=== PATIENT | female | born 2000 | race Two or more races ===

== ENCOUNTER 2023-12-15 18:58 | Inpatient (IN) | payer OTHER ==
[~2023-12-15] VITALS: Ht 160 cm; Wt 67.1 kg
[2023-12-15] MEDS ORDERED: FAMOTIDINE/PF 20 MG/2 ML VIAL IV PRN (19:15)
[2023-12-15] MEDS ORDERED: RINGERS SOLUTION,LACTATED 1,000 ML IV SCH (19:15)
[2023-12-15] MEDS ORDERED: MORPHINE SULFATE 4 MG/ML CARTRIDGE IV PRN (19:15)
[2023-12-15 20:02] LABS: HEMATOCRIT 37.4 % (36.0-45.00); HEMOGLOBIN 12.9 g/dL (12.0-15.00); MEAN CELL VOLUME 94.3 fL (80.00-100.00); MEAN CORPUSCULAR HEMOGLOBIN 32.6 pg (27.00-32.0); MEAN CORPUSCULAR HGB CONC 34.6 g/dl (32.0-36.0); PLATELET COUNT 213 K/uL (150-450); RED BLOOD COUNT 3.97 M/uL (4.00-6.00); RED CELL DISTRIBUTION WIDTH 12.9 % (11.5-14.5)
[2023-12-15 20:04] LABS: PH,URINE 5.5 (5.0-8.0); URINE APPEARANCE Clear; URINE BILIRRUBIN Negative (NEGATIVE); URINE BLOOD Negative; URINE COLOR Yellow; URINE GLUCOSE Negative (NEGATIVE); URINE LEUKOCYTE Negative; URINE NITRATE Negative; URINE PROTEIN Negative (NEGATIVE); URINE UROBILINOGEN 0.2 E.U./dl
[2023-12-15 20:07] LABS: URINE BACTERIA 1485.2 uL (0.0-1933); URINE EPITHELIAL CELLS 41.5 uL (0.0-38.8); URINE WBC 4.6 uL (0.0-23.2)
[2023-12-15 20:08] LABS: URINE RBC 1.5 uL (0.0-20.8)
[2023-12-15 20:25] LABS: INR 0.97; PARTIAL THROMBOPLASTIN TIME 31.2 SECONDS (22.0-34.0); PROTHROMBIN TIME 10.2 SECONDS (9.0-11.5)
[2023-12-15 20:28] LABS: BILIRUBIN TOTAL 1.28 mg/dL (0.3-1.2); CALCIUM 8.7 mg/dL (8.5-10.1); CREATININE SERUM 0.64 mg/dL (0.55-1.02); GFR 114.99; GLOBULINA 3.2 G/DL (2.4-3.5); POTASSIUM 3.44 mEq/L (3.5-5.1); TOTAL PROTEIN 6.2 gm/dL (6.4-8.2)
[2023-12-15] MEDS ORDERED: PEPCID40 MG PO (20:48)
[2023-12-15] MEDS ORDERED: PRENATAL TABLE1 EAC1 PO (20:48)
[2023-12-16] MEDS ORDERED: OXYTOCIN 500 ML IV ONE (07:30)
[2023-12-16] MEDS ORDERED: CHLORHEXIDINE GLUCONATE 120 ML BOTTLE TOP ONE (11:18)
[2023-12-16] MEDS ORDERED: DOCUSATE SODIUM 100MG CAP PO SCH (18:03)
[2023-12-16] MEDS ORDERED: ERYTHROMYCIN BASE 1 GM TUBE OP SCH (18:15)
[2023-12-16] MEDS ORDERED: LIDOCAINE HCL 1% 200MG/20ML VIAL IJ SCH (18:15)
[2023-12-16] MEDS ORDERED: CHLORHEXIDINE GLUCONATE 120 ML BOTTLE TP SCH (18:15)
[2023-12-16] MEDS ORDERED: IBUprofen 400 MG TABLET PO PRN (18:15)
[2023-12-17 05:12] LABS: HEMATOCRIT 36.9 % (36.0-45.00); HEMOGLOBIN 12.8 g/dL (12.0-15.00); MEAN CELL VOLUME 95.4 fL (80.00-100.00); MEAN CORPUSCULAR HEMOGLOBIN 33.1 pg (27.00-32.0); MEAN CORPUSCULAR HGB CONC 34.7 g/dl (32.0-36.0); PLATELET COUNT 180 K/uL (150-450); RED BLOOD COUNT 3.87 M/uL (4.00-6.00); RED CELL DISTRIBUTION WIDTH 12.9 % (11.5-14.5)
[2023-12-17] MEDS ORDERED: PNV,CALCIUM 72/IRON/FOLIC ACID 1 TAB TABLET PO SCH (09:00)
== END 2023-12-18 13:31 | disposition home or self-care (01) | DRG 807 ==
LOC: LDR 18:58 → OB/GYN 12-16 16:30
PROVIDERS: ADMIT Obstetrics & Gynecology Gynecology; ATTEND Obstetrics & Gynecology Gynecology
PROC: 4A1HXCZ Monitoring of Products of Conception, Cardiac Rate, External Approach (ICD-10-PCS; 2023-12-15)
PROC: 10E0XZZ Delivery of Products of Conception, External Approach (ICD-10-PCS; principal; 2023-12-16)
PROC: 0UQG7ZZ Repair Vagina, Via Natural or Artificial Opening (ICD-10-PCS; 2023-12-16)
DX: O71.4 Obstetric high vaginal laceration alone (principal); Z37.0 Single live birth; Z3A.40 40 weeks gestation of pregnancy; Z20.822 Contact with and (suspected) exposure to COVID-19

== ENCOUNTER 2025-09-06 14:45 | Inpatient (IN) | payer OTHER ==
[~2025-09-06] VITALS: Ht 162.6 cm; Wt 67.6 kg
[~2025-09-06 14:45] MED LIST: PEPCID40 MG PO; PRENATAL TABLE1 EAC1 PO
[2025-09-13] VITALS (7 sets, daily range): BP systolic 93–123; BP diastolic 53–76
[2025-09-13] MEDS ORDERED: MORPHINE SULFATE 4 MG/ML VIAL IV PRN (04:15)
[2025-09-13] MEDS ORDERED: RINGERS SOLUTION,LACTATED 1,000 ML IV SCH (04:15)
[2025-09-13] MEDS ORDERED: CHLORHEXIDINE GLUCONATE 120 ML BOTTLE TOP ONE (04:35)
[2025-09-13] MEDS ORDERED: ERYTHROMYCIN BASE OPHT 1GM EACH TUBE OP ONE (04:35)
[2025-09-13] MEDS ORDERED: LIDOCAINE HCL 1% 10ML VIAL ONE (04:35)
[2025-09-13] MEDS ORDERED: OXYTOCIN 20 UNITS/1000ML RL PIGGYBAG IV ONE (04:35)
[2025-09-13 04:41] LABS: BASO % 0.4 % (0.1-1.2); EOS # 0.22 (0.04-0.54); EOS % 2.9 % (0.7-7.0); LYMPH # 2.02 (1.18-3.74); LYMPH % 26.3 % (19.3-53.1); MEAN PLATELET VOLUME 9.80 fl (9.4-12.4); MONO # 0.66 (0.24-0.82); MONO % 8.6 % (4.7-12.5); NEUT # 4.71 (1.56-6.13); NEUT % 61.1 % (34.0-71.1); RED CELL DISTRIBUTION WIDTH 13.3 % (11.6-14.4)
[2025-09-13 05:03] LABS: INR < 0.93
[2025-09-13 05:07] LABS: ALT/SGPT 24.0 U/L (12-78); AST/SGOT 35.0 U/L (15-37); BILIRUBIN TOTAL 0.92 mg/dL (0.3-1.2); BUN CREA RATIO 16.0 (7.0-25.0); CREATININE SERUM 0.44 mg/dL (0.55-1.02); GFR 174.23; GLOBULINA 3.4 G/DL (2.4-3.5); GLUCOSE FASTING 83.0 mg/dL (65-100); OSMOLALITY SERUM 277.0 MOSM/KG (275-295)
[2025-09-13] MEDS ORDERED: CHLORHEXIDINE GLUCONATE 120 ML BOTTLE TP SCH (05:45)
[2025-09-13] MEDS ORDERED: OXYTOCIN 1,000 ML IV SCH (05:45)
[2025-09-14 00:50] VITALS: BP 115/71
[2025-09-14 06:48] LABS: BASO % 0.3 % (0.1-1.2); EOS # 0.26 (0.04-0.54); EOS % 2.9 % (0.7-7.0); LYMPH # 2.36 (1.18-3.74); LYMPH % 26.5 % (19.3-53.1); MEAN PLATELET VOLUME 10.00 fl (9.4-12.4); MONO # 0.66 (0.24-0.82); MONO % 7.4 % (4.7-12.5); NEUT # 5.55 (1.56-6.13); NEUT % 62.2 % (34.0-71.1); RED CELL DISTRIBUTION WIDTH 13.5 % (11.6-14.4)
[2025-09-14 08:58] VITALS: BP 102/65
[2025-09-14 17:27] VITALS: BP 105/70
[2025-09-15 00:59] VITALS: BP 103/63
[2025-09-15 08:00] VITALS: BP 95/60
== END 2025-09-15 14:14 | disposition home or self-care (01) | DRG 807 ==
LOC: LDR 09-12 14:45 → OB/GYN 09-13 09:11
PROVIDERS: Obstetrics & Gynecology; ADMIT Obstetrics & Gynecology Gynecology; ATTEND Obstetrics & Gynecology Gynecology
PROC: 4A1HXCZ Monitoring of Products of Conception, Cardiac Rate, External Approach (ICD-10-PCS; principal; 2025-09-13)
PROC: 10E0XZZ Delivery of Products of Conception, External Approach (ICD-10-PCS; 2025-09-13)
DX: O80 Encounter for full-term uncomplicated delivery (principal); Z37.0 Single live birth; Z3A.38 38 weeks gestation of pregnancy